=== PATIENT | male | born 1940 | race African-American/Black ===

== ENCOUNTER 2017-10-30 10:11 | Inpatient (IN) | payer MEDICARE ==
[~2017-10-30] VITALS: Ht 180.3 cm; Wt 107.4 kg
[2017-10-30] MEDS ORDERED: ASPIRIN 81 MG TABLET CHEW PO ONE (10:30)
[2017-10-30 10:36] LABS: BASOPHILS # (AUTO) 0.02 x10^3/uL (0-0.1); BASOPHILS % (AUTO) 0 % (0-1); EOSINOPHILS # (AUTO) 0.06 x10^3/uL (0-0.4); EOSINOPHILS % (AUTO) 1 % (1-7); LYMPHOCYTES # (AUTO) 1.29 x10^3/uL (1-3.4); LYMPHOCYTES % (AUTO) 20 % (22-44); MD NO; MEAN CORPUSCULAR HEMOGLOBIN 29.3 pg (27.5-34.5); MEAN CORPUSCULAR HGB CONC 32.8 g/dL (33.2-36.2); MEAN CORPUSCULAR VOLUME 89.2 fL (81-97); MEAN PLATELET VOLUME 8.8 fL (7.4-10.4); MONOCYTES # (AUTO) 0.44 x10^3/uL (0.2-0.8); MONOCYTES % (AUTO) 7 % (2-9); NEUTROPHILS # (AUTO) 4.77 x10^3/uL (1.8-6.8); NEUTROPHILS % (AUTO) 73 % (42-75); PLATELET COUNT 194 x10^3/uL (130-400); RED BLOOD COUNT 5.02 x10^6/uL (4.38-5.82); RED CELL DISTRIBUTION WIDTH 13.7 % (9.4-14.8)
[2017-10-30 10:47] LABS: ALBUMIN 3.8 g/dL (3.4-5.0); ANION GAP 8 mmol/L (5-15); CHLORIDE 110 mmol/L (98-107); CREATININE 1.38 mg/dL (0.7-1.3)
[2017-10-30 10:52] LABS: TROPONIN I 0.032 ng/mL (0.000-0.045)
[2017-10-30 10:55] LABS: INTERNATIONAL NORMALIZED RATIO 1.15 (0.93-1.1); PROTHROMBIN TIME 11.8 Seconds (9.6-11.5)
[2017-10-30] MEDS ORDERED: METOPROLOL 1 MG/ML, 5ML ONE ×2 (10:55→10:56)
[2017-10-30] MEDS ORDERED: PLEASE ENTER ALLERGIES MC SCH (11:00)
[2017-10-30] MEDS ORDERED: SODIUM CHLORIDE FLUSH 10ML SYR IVF ONE (11:00)
[2017-10-30] MEDS ORDERED: METOPROLOL 1 MG/ML, 5ML IVPush PRN (11:00)
[2017-10-30] MEDS ORDERED: LISI40TA PO (12:50)
[2017-10-30] MEDS ORDERED: CARV12.52 PO (12:50)
[2017-10-30] MEDS ORDERED: HYDR50TA3 PO (12:50)
[2017-10-30] MEDS ORDERED: DABI150C PO (12:50)
[2017-10-30] MEDS ORDERED: ASPI-515 PO (12:50)
[2017-10-30] MEDS ORDERED: ASCO10004 PO (12:50)
[2017-10-30] MEDS ORDERED: OMEG1CAP23 PO (12:50)
[2017-10-30] MEDS ORDERED: MULT-717 PO (12:50)
[2017-10-30] MEDS ORDERED: FLUO20CA8 PO (12:50)
[2017-10-30] MEDS ORDERED: FUROSEMIDE 20 MG/2 ML IV ONE (13:00)
[2017-10-30] MEDS ORDERED: FUROSEMIDE 20 MG/2 ML ONE (13:15)
[2017-10-30 14:42] VITALS: BP_SYST 172; BP_SYST 177; BP_DIAS 112; BP_DIAS 117
[2017-10-30] MEDS ORDERED: NITROGLYCERIN 0.4 MG BOTTLE (25 TABS) SL PRN (15:30)
[2017-10-30] MEDS ORDERED: ACETAMINOPHEN 325 MG TABLET PO PRN (15:30)
[2017-10-30] MEDS ORDERED: NITROGLYCERIN 0.4 MG/SPRAY SL PRN (15:30)
[2017-10-30] MEDS ORDERED: LABETALOL 5MG/ML, 20ML IVPush PRN (15:30)
[2017-10-30 16:00] VITALS: BP 147/89
[2017-10-30 16:14] LABS: HEMOGLOBIN A1C 6.5 % (4.2-6.3)
[2017-10-30 17:07] LABS: TROPONIN I 0.034 ng/mL (0.000-0.045)
[2017-10-30 19:15] VITALS: BP 125/84
[2017-10-30] MEDS: CARVEDILOL 12.5 MG TABLET PO SCH (21:08)
[2017-10-30] MEDS: FUROSEMIDE 20 MG/2 ML IV SCH (21:09)
[2017-10-31 00:29] VITALS: BP 115/73
[2017-10-31 05:33] LABS: BASOPHILS # (AUTO) 0.03 x10^3/uL (0-0.1); BASOPHILS % (AUTO) 1 % (0-1); EOSINOPHILS # (AUTO) 0.11 x10^3/uL (0-0.4); EOSINOPHILS % (AUTO) 2 % (1-7); LYMPHOCYTES # (AUTO) 1.87 x10^3/uL (1-3.4); LYMPHOCYTES % (AUTO) 33 % (22-44); MD NO; MEAN CORPUSCULAR HEMOGLOBIN 29.6 pg (27.5-34.5); MEAN CORPUSCULAR VOLUME 89.7 fL (81-97); MEAN PLATELET VOLUME 8.8 fL (7.4-10.4); MONOCYTES # (AUTO) 0.58 x10^3/uL (0.2-0.8); MONOCYTES % (AUTO) 10 % (2-9); NEUTROPHILS # (AUTO) 3.14 x10^3/uL (1.8-6.8); NEUTROPHILS % (AUTO) 55 % (42-75); PLATELET COUNT 156 x10^3/uL (130-400); RED BLOOD COUNT 4.57 x10^6/uL (4.38-5.82); RED CELL DISTRIBUTION WIDTH 14.1 % (9.4-14.8)
[2017-10-31] MEDS: ASPIRIN 325 MG TABLET EC PO SCH (05:39)
[2017-10-31 05:44] LABS: ALBUMIN 3.2 g/dL (3.4-5.0); ANION GAP 7 mmol/L (5-15); CALCIUM 8.3 mg/dL (8.5-10.1); CHLORIDE 106 mmol/L (98-107)
[2017-10-31 05:58] LABS: ALANINE AMINOTRANSFERASE 31 U/L (12-78); ALKALINE PHOSPHATASE 48 U/L (45-117); BILIRUBIN,TOTAL 0.7 mg/dL (0.2-1.0); CHOLESTEROL, TOTAL 96 mg/dL (140-239); CREATININE 1.37 mg/dL (0.7-1.3); HDL CHOL % 49 % (26-37); HDL CHOLESTEROL (DIRECT) 47 mg/dL (40-60); LDL CHOLESTEROL,CALCULATED 34 mg/dL (54-169); LDL/HDL RATIO 0.7 (0.5-3.0); THYROID STIMULATING HORMONE 0.623 mIU/L (0.358-3.740); TOTAL PROTEIN 6.9 g/dL (6.4-8.2); TRIGLYCERIDES 73 mg/dL (50-200); VLDL CHOLESTEROL 15 mg/dL (0-25)
[2017-10-31 06:37] VITALS: BP 150/77
[2017-10-31] MEDS ORDERED: REGADENOSON 0.4 MG/5 ML SYRINGE ONE (08:20)
[2017-10-31] MEDS: CARVEDILOL 12.5 MG TABLET PO SCH ×2 (10:16→21:02)
[2017-10-31] MEDS: FUROSEMIDE 20 MG/2 ML IV SCH ×2 (10:16→16:37)
[2017-10-31] MEDS: ASCORBIC ACID 500 MG TABLET PO SCH (10:16)
[2017-10-31] MEDS: LISINOPRIL 20 MG TABLET PO SCH (10:16)
[2017-10-31] MEDS: FLUOXETINE HCL 20 MG CAPSULE PO SCH (10:16)
[2017-10-31] MEDS: DABIGATRAN 150 MG CAPSULE PO SCH (10:16)
[2017-10-31 12:06] VITALS: BP 134/84
[2017-10-31 20:30] VITALS: BP 123/66
[2017-10-31] MEDS ORDERED: ATORVASTATIN 20 MG TABLET PO SCH (21:00)
[2017-11-01 02:09] VITALS: BP 120/82
[2017-11-01] MEDS: ASPIRIN 325 MG TABLET EC PO SCH (05:38)
[2017-11-01 07:33] LABS: ANION GAP 7 mmol/L (5-15); CALCIUM 8.6 mg/dL (8.5-10.1); CHLORIDE 108 mmol/L (98-107)
[2017-11-01 07:52] VITALS: BP 138/84
[2017-11-01] MEDS: ASCORBIC ACID 500 MG TABLET PO SCH (08:51)
[2017-11-01] MEDS: DABIGATRAN 150 MG CAPSULE PO SCH (08:51)
[2017-11-01] MEDS: CARVEDILOL 12.5 MG TABLET PO SCH (08:52)
[2017-11-01] MEDS: LISINOPRIL 20 MG TABLET PO SCH (08:52)
[2017-11-01] MEDS: FLUOXETINE HCL 20 MG CAPSULE PO SCH (08:52)
[2017-11-01] MEDS ORDERED: FURO-93 PO (12:09)
[2017-11-01] MEDS ORDERED: ATOR20TA9 PO (12:09)
[2017-11-01 14:00] VITALS: BP 127/80
[2017-11-01] MEDS ORDERED: SPIR25TA PO (15:12)
== END 2017-11-01 15:40 | disposition home or self-care (01) | DRG 292 ==
LOC: ED 12:34 → 5SO 12:35 → ED 14:23 → 5SO 10-31 23:09 → DCLOUNGE 11-01 15:06
PROVIDERS: ADMIT Internal Medicine; ATTEND Internal Medicine
DX: I11.0 Hypertensive heart disease with heart failure (principal); D68.69 Other thrombophilia; I50.21 Acute systolic (congestive) heart failure; I44.7 Left bundle-branch block, unspecified; E78.5 Hyperlipidemia, unspecified; R73.9 Hyperglycemia, unspecified; E74.39 Other disorders of intestinal carbohydrate absorption; I25.10 Atherosclerotic heart disease of native coronary artery without angina pectoris; I48.2 Chronic atrial fibrillation; F32.9 Major depressive disorder, single episode, unspecified; Z79.01 Long term (current) use of anticoagulants; Z82.3 Family history of stroke; Z85.46 Personal history of malignant neoplasm of prostate
CPT/HCPCS: 36415; 70450; 71045; 78452; 80048; 80053; 80061; 82040; 83036; 83880; 84443; 84484; 85025; 85610; 85730; 93005; 93017; 93306; J2785; A9502; C9898; J1940

== ENCOUNTER 2018-04-25 06:52 | Emergency (ER) | payer MEDICARE ==
[~2018-04-25] VITALS: Ht 180.3 cm; Wt 109.7 kg
[~2018-04-25 06:52] MED LIST: ASCO10004 PO; ASPI-515 PO; ATOR20TA37 PO; CARV12.52 PO; DABI150C PO; FLUO20CA8 PO; FURO-93 PO; HYDR50TA3 PO; LISI40TA PO; MULT-717 PO; OMEG1CAP23 PO; SPIR25TA PO
[2018-04-25] MEDS ORDERED: LOSA50TA7 PO (07:34)
[2018-04-25] MEDS ORDERED: ISOS120T2 PO (07:35)
[2018-04-25] MEDS ORDERED: MIRT15TA4 PO (07:37)
[2018-04-25 07:39] LABS: BASOPHILS # (AUTO) 0.03 x10^3/uL (0-0.1); BASOPHILS % (AUTO) 0 % (0-1); EOSINOPHILS # (AUTO) 0.09 x10^3/uL (0-0.4); EOSINOPHILS % (AUTO) 2 % (1-7); LYMPHOCYTES # (AUTO) 1.53 x10^3/uL (1-3.4); LYMPHOCYTES % (AUTO) 25 % (22-44); MD NO; MEAN CORPUSCULAR HEMOGLOBIN 29.4 pg (27.5-34.5); MEAN CORPUSCULAR HGB CONC 32.7 g/dL (33.2-36.2); MEAN CORPUSCULAR VOLUME 89.8 fL (81-97); MEAN PLATELET VOLUME 8.5 fL (7.4-10.4); MONOCYTES # (AUTO) 0.56 x10^3/uL (0.2-0.8); MONOCYTES % (AUTO) 9 % (2-9); NEUTROPHILS # (AUTO) 4.05 x10^3/uL (1.8-6.8); NEUTROPHILS % (AUTO) 65 % (42-75); PLATELET COUNT 197 x10^3/uL (130-400); RED BLOOD COUNT 4.09 x10^6/uL (4.38-5.82); RED CELL DISTRIBUTION WIDTH 13.9 % (9.4-14.8)
[2018-04-25] MEDS ORDERED: ASPI-496 PO (07:41)
[2018-04-25 07:51] LABS: ALANINE AMINOTRANSFERASE 57 U/L (12-78); ALBUMIN 3.3 g/dL (3.4-5.0); CALCIUM 8.5 mg/dL (8.5-10.1); CHLORIDE 113 mmol/L (98-107); CREATININE 1.37 mg/dL (0.7-1.3)
[2018-04-25 07:56] LABS: ALKALINE PHOSPHATASE 55 U/L (45-117); BILIRUBIN,TOTAL 0.4 mg/dL (0.2-1.0); TOTAL PROTEIN 7.2 g/dL (6.4-8.2)
[2018-04-25 08:00] LABS: ANION GAP 8 mmol/L (5-15)
[2018-04-25 09:18] VITALS: BP 154/97
== END 2018-04-25 09:59 | disposition home or self-care (01) ==
LOC: ED 09:25
DX: R05 Cough (principal); R06.00 Dyspnea, unspecified; I48.91 Unspecified atrial fibrillation; I10 Essential (primary) hypertension; F32.9 Major depressive disorder, single episode, unspecified
CPT/HCPCS: 36415; 71045; 80053; 83880; 84484; 85025; 93005; 99284